=== PATIENT | female | born 1955 | race Two or more races ===

== ENCOUNTER 2021-04-12 20:50 | Emergency (ER) | payer MEDICARE, MEDICAID ==
[~2021-04-12] VITALS: Ht 160 cm; Wt 81.8 kg
[~2021-04-12 20:50] MED LIST: unknown meds
[2021-04-12 22:11] VITALS: BP 125/76
== END 2021-04-13 00:05 | disposition left against medical advice (07) ==
LOC: ER 20:50
DX: R05.9 Cough, unspecified (principal); Z53.21 Procedure and treatment not carried out due to patient leaving prior to being seen by health care provider